=== PATIENT | female | born 1985 | race Two or more races ===

== ENCOUNTER 2024-02-02 08:26 | Outpatient (CLI) | payer MEDICAID, SELFPAY | END 2024-02-02 08:27 | disposition home or self-care (01) | PROVIDERS: PCP Family Medicine; Visit Provider Midwife | DX: Z34.92 Encounter for supervision of normal pregnancy, unspecified, second trimester (principal); Z3A.16 16 weeks gestation of pregnancy | CPT/HCPCS: 76815; 81511; 86592; 86703; 86704; 86706; 86762; 86787; 86803; 86850; 86900; 86901; 87086; 87340; 87491; 87591 ==

== ENCOUNTER 2024-02-21 10:12 | Outpatient (CLI) | payer MEDICAID, SELFPAY | END 2024-02-21 10:13 | disposition home or self-care (01) | LOC: US 10:13 | PROVIDERS: PCP Family Medicine; Visit Provider Midwife | DX: O09.522 Supervision of elderly multigravida, second trimester (principal); Z3A.19 19 weeks gestation of pregnancy | CPT/HCPCS: 76811 ==

== ENCOUNTER 2024-04-24 13:34 | Outpatient (CLI) | payer MEDICAID, SELFPAY | END 2024-04-24 13:35 | disposition home or self-care (01) | LOC: NFLDREF 04-27 20:24 | PROVIDERS: PCP Family Medicine; Referring Provider Family Medicine; Visit Provider Advanced Practice Midwife | DX: O09.523 Supervision of elderly multigravida, third trimester (principal); Z3A.28 28 weeks gestation of pregnancy | CPT/HCPCS: 86592 ==

== ENCOUNTER 2024-06-20 16:28 | Outpatient (CLI) | payer MEDICAID, SELFPAY ==
[2024-06-21 13:24] LABS: Strep B DNA Probe Negative (Negative)
[2024-06-21 14:22] LABS: Strep B Susceptibility Needed? No
== END 2024-06-20 16:29 | disposition home or self-care (01) ==
LOC: NFLDREF 16:28
PROVIDERS: PCP Family Medicine; Visit Provider Advanced Practice Midwife
DX: Z34.93 Encounter for supervision of normal pregnancy, unspecified, third trimester (principal); Z3A.36 36 weeks gestation of pregnancy
CPT/HCPCS: 87081; 87653

== ENCOUNTER 2024-07-02 12:07 | Inpatient (IN) | payer MEDICAID, SELFPAY ==
[2024-07-02] VITALS (18 sets, daily range): BP systolic 117–140; BP diastolic 56–86; PULSE 64–83; RESP 16–18; TEMP 36.6–36.9; O2SAT 97–100; BMI 29.1
--- NOTE | 2024-07-02 10:50 | PM.OBLDTN ---
Documented by User: Ivette Anderson 07/02/24 15:05 OB - Triage/Final Diagnosis Visit Information Date Seen: 07/02/24 Narrative: The patient is a 38 year old 3 para 1 at 38 weeks 3d gestation by LMP confirmed by 2nd trimester US, who presents with contractions increasing in intensity and frequency since 0800 this morning. Denies LOF, bleeding/spotting, reports positive movement. Accompanied by her partner Jeffrey, who is supportive and at the bedside. In overall good health, afebrile, denies any present illness. Evaluation Cervical dilation (cm): 3 Cervical effacement (%): 50 (middle, soft) Vital signs: Vital Signs - 24 hr 07/02/24 09:55 07/02/24 10:42 07/02/24 10:44 Pulse Rate 69 71 Blood Pressure 140/80 H 139/81 Pulse Oximetry 100 Comments: Vitals Reviewed Constitutional:? Alert and oriented x3 HEENT:? Normocephalic, atraumatic Neck:? Supple Lungs:? Clear to auscultation bilaterally Heart:? Regular rate and rhythm, no murmur, rub or gallop Abdomen:? Soft, nontender, and gravid. Vertex by Tripp's, confirmed with cervical exam. Extremities:? No edema or erythema Cervix: 3 cm/50%/-1 station/vertex NST: 140 bpm/mod variability/15x15 accelerations/periodic decelerations/irregular contractions Final Diagnosis (1) : Status: Acute (2) AMA (advanced maternal age) multigravida 35+: Status: Acute (3) Pain during labor: Status: Acute Total Time Spent Total Time Spent: ASSESSMENT:?? 38 at 38 weeks 3 days gestation?? complicated by:??AMA Labor type: Spontaneous, Early labor?? Category 2 FHR pattern.??? Labor complicated by: ?? GBS negative ?? PLAN:?? 1. Routine intrapartum cares as ordered. Continue with expectant management?? 2. Monitoring per policy, continuous 3. Planning unmedicated . Desires water . Consent signed. Hep C negative. Candidate for analgesia of choice.??? 4. Patient encouraged to reposition and ambulate to promote physiologic labor and .?? 5. PreEclampsia baseline, 6. Anticipate ? Documented by User: Noemy Shannon EpsteinSILVANO 07/02/24 15:06 OB - Triage/Final Diagnosis Evaluation Comments: Vitals Reviewed Constitutional:? Alert and oriented x3 HEENT:? Normocephalic, atraumatic Neck:? Supple Lungs:? Clear to auscultation bilaterally Heart:? Regular rate and rhythm, no murmur, rub or gallop Abdomen:? Soft, nontender, and gravid. Vertex by Tripp's, confirmed with cervical exam. Extremities:? No edema or erythema Cervix: [] cm/[]%/[] station/[vertex] NST: [] bpm/[] variability/[]accelerations/[]decelerations/[]contractions Final Diagnosis (1) : Status: Acute (2) AMA (advanced maternal age) multigravida 35+: Status: Acute (3) Pain during labor: Status: Acute Total Time Spent Total Time Spent: ASSESSMENT:?? 38 at 38 weeks 3 days gestation?? complicated by:??AMA Labor type: Spontaneous, Early labor?? Category 2 FHR pattern.??? Labor complicated by: ?? GBS negative ?? PLAN:?? 1. Will recheck cervix for change at noon and admit as indicated. 2. Patient encouraged to reposition and ambulate to promote physiologic labor and .?? 3. PreEclampsia baseline labs to be drawn with borderline BP,
[2024-07-02 11:11] LABS: Hematocrit 36.2 % (33.0-51.0); Hemoglobin* 11.7 gm/dL (12.0-16.0); Mean Corpuscular HGB Conc 32 gm/dL (32-36); Mean Corpuscular Hemoglobin 27 pg (26-34); Mean Corpuscular Volume 84 fL (80-100); Platelet Count* 217 K/uL (140-440); Red Blood Count 4.31 m/uL (4.00-5.20); White Blood Count* 6.85 K/uL (4.50-11.00)
[2024-07-02 11:21] LABS: Slide Review Reflex No
[2024-07-02 11:29] LABS: Alanine Aminotransferase* 11 U/L (4-35); Aspartate Amino Transferase* 19 U/L (12-35); Blood Urea Nitrogen* 9 mg/dL (5-24); Creatinine* 0.5 mg/dL (0.5-1.5); Estimated Glomerular Filt Rate 123 ml/min
--- NOTE | 2024-07-02 12:47 | P.LDBA_ITS ---
Documented by User: Noemy Epstein CNM 07/02/24 14:56 Subjective History of Present Illness Narrative: Patient is being admitted to Labor and Delivery for []. She is a 38 year old at weeks gestation. Her full history and physical was dictated by [] on []. Please see this for details. [] Specific Issues/Plans Partner: ?Jeffrey Horan H&P completed by SILVANO Reynolds on 06/28/2024 ? ? #AMA Level II US: with [employer] Genetic testing: NIPT testing low risk #History of vacuum use with episiotomy for decelerations Imaging:? 1st trimester: Ultrasound #1: 02/02/24 16w3d weeks by LMP, 17w3d weeks by u/s? KERWIN: 07/13/2023 by LMP, c/w 2nd trimester u/s ? Anatomy scan Lev2: 02/21/2024-normal findings ? ? COVID: initial series, 1 booster? Flu: ? Tdap: ? RSV: 05/22/2024 32wk Mental Health: 34wk hgb: ?11.2 Pap: 2022 last, no hx of abnormal OB - Problem Based A/P Additional Plan (1) : Status: Acute (2) AMA (advanced maternal age) multigravida 35+: Status: Acute (3) Pain during labor: Status: Acute Plan ASSESSMENT:?? 38 at 38 weeks 3days gestation?? complicated by:??AMA, Hx vacuum delivery Labor type: Spontaneous, Active labor?? Category 2,FHR pattern.??? Labor complicated by: Mild elevation BP, not repeated, baseline PReE labs normal?? GBS negative? ?? PLAN:?? 1. Routine intrapartum cares as ordered. Continue with expectant management?? 2. Monitoring per policy, intermittent 3. Planning unmedicated . Hep C negative. Candidate for analgesia of choice.??? 4. Patient encouraged to reposition and ambulate to promote physiologic labor and .?? 5. Anticipate I, MICHAELLE Fox CNM, was present for visit and have reviewed and agree with documentation by the Certified Nurse Midwifery Student.? ? OB Exam Physical Exam Vital signs: Pulse BP Pulse Ox 70 132/63 100 07/02/24 12:14 07/02/24 12:14 07/02/24 10:42 Narrative: Vitals Reviewed Constitutional:? Alert and oriented x3 HEENT:? Normocephalic, atraumatic Neck:? Supple Lungs:? Clear to auscultation bilaterally Heart:? Regular rate and rhythm, no murmur, rub or gallop Abdomen:? Soft, nontender, and gravid. Vertex by Tripp's, confirmed with cervical exam. Extremities:? No edema or erythema Cervix: [] cm/[]%/[] station/[vertex] NST: [] bpm/[] variability/[]accelerations/[]decelerations/[]contractions Documented by User: Ivette Anderson 07/02/24 13:16 Subjective History of Present Illness Narrative: Patient is being admitted to Labor and Delivery for Active labor. She is a 38 year old at 38 weeks 3days gestation. Her full history and physical was dictated by Candi Hallman CNM on 06/28/24. Please see this for details. Specific Issues/Plans Partner: ?Jeffrey Horan H&P completed by SILVANO Reynolds on 06/28/2024 ? ? #AMA Level II US: with [employer] Genetic testing: NIPT testing low risk #History of vacuum use with episiotomy for decelerations Imaging:? 1st trimester: Ultrasound #1: 02/02/24 16w3d weeks by LMP, 17w3d weeks by u/s? KERWIN: 07/13/2023 by LMP, c/w 2nd trimester u/s ? Anatomy scan Lev2: 02/21/2024-normal findings ? ? COVID: initial series, 1 booster? Flu: ? Tdap: ? RSV: 05/22/2024 32wk Mental Health: 34wk hgb: ?11.2 Pap: 2022 last, no hx of abnormal Comments: OB - Problem Based A/P Additional Plan (1) : Status: Acute (2) AMA (advanced maternal age) multigravida 35+: Status: Acute (3) Pain during labor: Status: Acute Plan ASSESSMENT:?? 38 at 38 weeks 3days gestation?? complicated by:??AMA, Hx vacuum delivery Labor type: Spontaneous, Active labor?? Category 2,FHR pattern.??? Labor complicated by: Mild elevation BP, not repeated, baseline PReE labs norm al?? GBS negative? ?? PLAN:?? 1. Routine intrapartum cares as ordered. Continue with expectant management?? 2. Monitoring per policy, intermittent 3. Planning unmedicated . Hep C negative. Candidate for analgesia of choice.??? 4. Patient encouraged to reposition and ambulate to promote physiologic labor and .?? 5. Anticipate OB Result Labs Blood Type: O (+) positive Rubella: immune RPR/VDLR: nonreactive GBS Status: negative HBsAG: negative OB Exam Physical Exam Narrative: Vitals Reviewed Constitutional:? Alert and oriented x3 HEENT:? Normocephalic, atraumatic Lungs:? Clear to auscultation bilaterally Heart:? Regular rate and rhythm, no murmur, rub or gallop Abdomen:? Soft, nontender, and gravid. Vertex by Tripp's, confirmed with cervical exam. Extremities:? No edema or erythema Cervix: 5.5/80/-1 mid position, soft consistency NST: 140 bpm/moderate variability/present accelerations/absent dec elerations/contractions every 3 min.
[2024-07-02 13:21] LABS: Total Protein Urine 21 mg/dL
[2024-07-02 13:22] LABS: Creatinine Urine 62.8 mg/dL; Protein Creatinine Ratio Urine 0.33 (0-0.19)
[2024-07-02] MEDS: OXYTOCIN 10 UNIT/ML INJ IM (14:25)
--- NOTE | 2024-07-02 15:06 | W.PM.OBVAGDE ---
OB Procedure Vag Delivery Mother Details Mother Details: The patient is a 38 year-old, 3, Para 2012 now, admitted on 07/02/24 at 38w3d gestation. Admission Date: 07/02/24 Additional Details Amniotic Membrane Status: AROM Amniotic Membrane Rupture Date: 07/02/24 Amniotic Membrane Rupture Time: 13:54 Amniotic Membrane Fluid Description: Clear Analgesia/Anesthesia Type: None Waterbirth: No Pitcoin: Yes ([facility] only) Intrapartal Events: None Labor Onset: 08:00 Complete: 14:00 Pushin:00 (sporadic minimal intermittent pushing at AL) Heart: heart tones during second stage were monitored intermittently and audible at 150 bpm between contractions with no audible decreases or increases. difficult to detect at +3 and +4 station Delivery Details Delivery Date: 07/02/24 Delivery Time: 14:19 Route of delivery: Gender: Male Infant Viability: Alive; Heart Rate Present Position at Delivery: OA (PHUC) Delivery Details: Patient was admitted for active labor and progressed normally. AROM per patient request noted at 1354 with clear fluid. Patient was complete at 1400 and pushing consistently about that time. of a viable male at 1419 in Kneeling with one leg, squatting with other with upper body leaning on the squat bar. Vertex delivered OA. No nuchal cord or shoulder dystocia. Body delivered easily and without incident, but compound left hand noted. Infant passed to mothers abdomen with a vigorous cry. Cord, with notably very short length, was clamped and cut at > 5 minutes. APGARS were 8 at one minute and 9 at five minutes respectively. Intact placenta with a 3 vessel cord delivered spontaneously at 1433. Fundus firm. 1st degree at R mL labial laceration identified and hemostatic. QBL 37 cc. Mother and baby stable; mother plans to breastfeed. Infant weight pending.? 1 Minute Interval Total Score: 8 5 Minute Interval Total Score: 9 Additional Details Shoulder Dystocia: No Placenta Delivery Time: 14:33 Placental Delivery Description: Spontaneous Procedure Done: Global Blood Loss: 37 Laceration: Vaginal - 1st Degree (hemostatic and not repaired) Blood Loss Measurement Type: EBL Bakri Used: No Sponge/Need Count Correct: Yes Cord Vessel Description: 3 Vessels and Clamped/Cut Event Summary Status: Mother and were stable after delivery. I, AWestphal, BARIATRIC COORDINATOR, CNM, was present for visit and have reviewed and agree with documentation by the Certified Nurse Midwifery Student.? Disposition: floor
[2024-07-02] MEDS: IBUPROFEN 600 MG TABLET PO ×2 (16:11→23:51)
[2024-07-02] MEDS: ACETAMINOPHEN 500 MG TABLET 1000 MG PO (19:51)
[2024-07-03] MEDS: ACETAMINOPHEN 500 MG TABLET 1000 MG PO ×2 (05:29→13:19)
[2024-07-03 05:31] VITALS: BP 121/75; PULSE 58; RESP 16; TEMP 36.5; O2SAT 98
--- NOTE | 2024-07-03 08:05 | PM.OBDSVD1 ---
DS: Providers Provider Date Seen: 07/03/24 Date of admission: 07/02/24 12:07 Primary care physician: Blessing Neumann MD Admitting Clinician: Noemy Epstein CNM Attending Physician on discharge: Jaguar Cuevas CNM Date of Discharge: 07/03/24 DS: Diagnosis Discharge Diagnosis (1) care and examination of lactating mother: Status: Acute Exam Narrative: Exam Narrative: VSS, afebrile GENERAL APPEARANCE: ?normal affect, alert, no distress MOOD: ?appropriate HEENT: normocephalic, neck supple, full ROM CHEST: ?Symmetrical chest wall movement. ?Normal respiratory effort. ?Clear to auscultation HEART: ?regular rate and rhythm ABDOMEN: ?soft, non-tender. Uterine fundus is firm, at Umbilicus, Midline and is appropriate for the stage of recovery. ?Bowel sounds present. PERINEUM: ?mild edema of the perineum, there is a 1st degree laceration that is healing well. EXTREMITIES: ?normal and no edema Const: Vital Signs, click to edit/add: Vital Signs - 24 hr 07/02/24 09:55 07/02/24 10:42 07/02/24 10:44 Temperature Pulse Rate 69 71 Pulse Rate [Pulse Oximeter] Respiratory Rate Blood Pressure 140/80 H 139/81 Blood Pressure [Le ft Arm] Pulse Oximetry 100 Oxygen Delivery [facility] 07/02/24 12:14 07/02/24 14:35 07/02/24 14:35 Temperature 98.0 F Pulse Rate 70 78 Pulse Rate [Pulse Oximeter] Respiratory Rate 18 Blood Pressure 132/63 123/65 Blood Pressure [Le ft Arm] Pulse Oximetry Oxygen Delivery [facility] 07/02/24 14:50 07/02/24 14:50 07/02/24 15:05 Temperature Pulse Rate 64 70 Pulse Rate [Pulse Oximeter] Respiratory Rate 18 Blood Pressure 125/62 135/70 Blood Pressure [Le ft Arm] Pulse Oximetry Oxygen Delivery [facility] 07/02/24 15:05 07/02/24 15:26 07/02/24 15:27 Temperature Pulse Rate 68 Pulse Rate [Pulse Oximeter] Respiratory Rate 18 18 Blood Pressure 117/56 L Blood Pressure [Le ft Arm] Pulse Oximetry Oxygen Delivery [facility] 07/02/24 15:35 07/02/24 15:35 07/02/24 15:50 Temperature 98.2 F Pulse Rate 64 Pulse Rate [Pulse Oximeter] Respiratory Rate 18 18 Blood Pressure 125/62 Blood Pressure [Le ft Arm] Pulse Oximetry Oxygen Delivery [facility] 07/02/24 15:51 07/02/24 16:08 07/02/24 16:09 Temperature Pulse Rate 64 75 Pulse Rate [Pulse Oximeter] Respiratory Rate 18 Blood Pressure 117/61 131/79 Blood Pressure [Le ft Arm] [facility] 16:20 07/02/24 16:20 07/02/24 16:35 Temperature Pulse Rate 70 82 Pulse Rate [Pulse Oximeter] Respiratory Rate 18 Blood Pressure 138/86 139/82 Blood Pressure [Le ft Arm] Pulse Oximetry [facility] 07/[facility] 16:35 07/02/24 19:40 07/02/24 23:56 Temperature 97.9 F 98.4 F Pulse Rate Pulse Rate [Pulse Oximeter] 83 67 Respiratory Rate 18 16 16 Blood Pressure Blood Pressure [Le ft Arm] 121/72 134/81 Pulse Oximetry 97 97 [facility] 07/03/24 05:31 Temperature 97.7 F Pulse Rate Pulse Rate [Pulse Oximeter] 58 L Respiratory Rate 16 Blood Pressure Blood Pressure [Le ft Arm] 121/75 Pulse Oximetry 98 [facility] Documenting provider has reviewed patient's vital signs: yes OB - DS: Summary Hospital Course Hospital Course: Enedelia is a 38 y.o. who was admitted to L & D for labor. ?She had an uncomplicated NVD.?The patient feels well. ?The pain is well controlled with current medications. ?She has no new complaints. ?She is breast feeding and reports things are going well.? the patient has done well.? Vitals have been stable.? She has remained afebrile.? Has a good appetite, is tolerating a general diet. ?She is voiding without difficulty.? She is passing gas and has not had a bowel movement.? She is ambulating and denies any dizziness.? Has Small amount of rubra lochia. ?She is planning the minipill for prevention. Peripartum Data Infant delivery method: Vaginal Laceration description: Vaginal - 1st Degree complications: none Infant Gender: Male Discharge Plan: Home Status at Discharge Functional status at discharge: independent ambulation Overall status at discharge: patient is progressing back to baseline Time Spent with Patient Time attestation: Total time spent providing and/or coordinating discharge services: Time spent: Less than 30 minutes Discharge Plan Discharge Disposition: Home, Self-Care Date of Admission: 07/02/24 12:07 Attending Provider on Discharge: Jaguar Cuevas Primary Care Provider: Blessing Neumann Condition: Stable Anticipated Discharge Date/Time: 07/03/24 17:00 Discharge Medications: New docusate sodium 100 mg Capsule 100 mg PO DAILY Qty: 90 0RF ibuprofen 600 mg Tablet 600 mg PO Q6H PRNQty: 60 0RF acetaminophen 500 mg Tablet 1,000 mg PO Q6H PRNQty: 0 0RF Continued One-A-Day -1 27 mg iron- 800 mcg-235 mg capsule 1 cap PO DAILY Discharge Orders: Discharge Order (Routine); Ordered 07/03/24 Ordered By: Jaguar Cuevas Patient Education: OB Over the Counter Medication Information, OB Vaginal/Breast Feeding Additional Instructions: Discharge instructions were reviewed with the patient including signs and symptoms of infection and home going medications Nothing vaginally for 6 weeks: no tampons or intercourse Off Work or School for 6 weeks Symptoms to report to doctor: Bleeding that saturates more than one pad per hour Passing clots larger than the size of a golf ball Pain not relieved by prescribed medication Fever above 100.4 degrees Fahrenheit A foul vaginal odor Difficulty in emotions, mood, and functions Thoughts of hurting yourself and/or Painful, reddened area in your breast Any drainage, redness, or tenderness in your IV/epidural site Severe headache that doesn't improve after taking medications Changes in vision, including temporary loss of vision, blurred vision, and/or light sensitivity Upper abdominal pain (usually under ribs on the right side) Decrease in urination or painful, frequent urinating Chest pain Shortness of breath Tenderness or pain with redness and/swelling in the calf(s) of your leg 2-week visit: discuss feeding concerns, review control options and screen for anxiety/depression. 6-week visit for an annual exam. consultation services are available to all mothers and babies for the first year after delivery.? To make an appointment, please call [phone]. Activity Level: Activity as Tolerated Discharge Diet: Regular Follow Up Appointments: [facility] [Provider Group] Forms: [facility] Info Instructions
[2024-07-03 08:34] VITALS: BP 119/77; PULSE 68; RESP 16; TEMP 36.8; O2SAT 99
[2024-07-03 13:14] VITALS: BP 139/85; PULSE 64; RESP 16; TEMP 36.7; O2SAT 97
[2024-07-03 22:18] LABS: Rapid Plasma Reagin (RPR) Non Reactive (Non Reactive)
== END 2024-07-03 18:10 | disposition home or self-care (01) | DRG 807 ==
LOC: OB OUT 12:07 → OB 12:07
PROVIDERS: Admitting Provider Midwife; PCP Family Medicine; Visit Provider Midwife
DX: O70.0 First degree perineal laceration during delivery (principal); Z37.0 Single live birth; Z3A.38 38 weeks gestation of pregnancy
CPT/HCPCS: 36415; 82565; 82570; 84156; 84450; 84460; 84520; 85027; 86592; A9270; J2590

== ENCOUNTER 2024-08-15 13:21 | Outpatient (CLI) | payer MEDICAID, SELFPAY ==
[2024-08-16 21:53] LABS: HPV Source Cervical; HPV, High Risk by TMA Not Detected
[2024-08-22 16:30] LABS: Pap Test Reviewed by Path Done
== END 2024-08-15 13:22 | disposition home or self-care (01) ==
PROVIDERS: PCP Family Medicine; Visit Provider Advanced Practice Midwife
DX: Z12.4 Encounter for screening for malignant neoplasm of cervix (principal); Z39.2 Encounter for routine postpartum follow-up
CPT/HCPCS: 87624; 87625; 88141; 88142

== ENCOUNTER 2025-03-10 16:36 | Outpatient (CLI) | payer MEDICAID, SELFPAY ==
--- NOTE | 2025-03-10 16:45 | CRLHL7_ITS ---
For Patients: As a result of the Century Cures Act, medical imaging exams and procedure reports are released immediately into your electronic medical record. You may view this report before your referring provider. If you have questions, please contact your health care provider. OB ULTRASOUND INDICATION: Dating and viability. TECHNIQUE: Real time grayscale imaging of the fetus was performed. Transvaginal. Transvaginal imaging performed to better demonstrate the endometrium and ovaries. LMP: 01/09/2025. KERWIN by LMP: 10/16/2025. GA: 8 w, 4 d. Previous US: No. CRL: 2.1 cm. 8 w 5 d. KERWIN: 10/15/2025. FHR: 173 BPM. Gestational sac: 3.2 cm. Appears within normal limits. Yolk sac: 3.6 mm. Appears within normal limits. Right ovary: 2.5 x 1.6 x 1.6 cm. Left ovary: 3.7 x 2.8 x 2.9 cm. CL. IMPRESSION: 1. Single living intrauterine measures 8 weeks 5 days with sonographic due date 10/15/2025. 2. Small curvilinear subchorionic hemorrhage measures 2.0 x 1.2 x 0.4 cm. 3. Corpus luteal cyst left ovary. 4. Multiple intramural fibroids measure 8 x 6 x 9 mm, 11 x 7 x 9 mm, and 11 x 8 x 15 mm. Lars Lombardo M.D. Diagnostic Radiologist [email or web address] VALORIE/morgan mora/Dictated by: Lars Lombardo MD @ 03/11/2025 7:48:00 AM (Electronically Signed)
== END 2025-03-10 16:37 | disposition home or self-care (01) ==
LOC: US 16:36
PROVIDERS: PCP Family Medicine; Visit Provider Physician Assistant
DX: O20.9 Hemorrhage in early pregnancy, unspecified (principal); O34.11 Maternal care for benign tumor of corpus uteri, first trimester; N83.12 Corpus luteum cyst of left ovary; D25.1 Intramural leiomyoma of uterus; Z3A.08 8 weeks gestation of pregnancy
CPT/HCPCS: 76817; 83021; 86592; 86703; 86704; 86706; 86762; 86787; 86803; 86850; 87086; 87340; 87491; 87591